=== PATIENT | male | born 1970 | race Two or more races ===

== ENCOUNTER 2019-11-19 09:22 | Emergency (ER) | payer BC ==
[~2019-11-19] VITALS: Ht 182.9 cm; Wt 136.1 kg
[2019-11-19] MEDS ORDERED: AMOX1TAB5 PO (09:58)
[2019-11-19] MEDS ORDERED: MUPIROCIN15 GM TOP (09:59)
== END 2019-11-19 11:19 | disposition home or self-care (01) ==
LOC: ER 09:22
DX: L03.011 Cellulitis of right finger (principal)